=== PATIENT | male | born 1985 | race Caucasian/White ===

== ENCOUNTER 2021-10-03 02:51 | Emergency (ER) | payer OTHER, SELFPAY ==
[2021-10-03] VITALS (18 sets, daily range): BP systolic 137–172; BP diastolic 81–108; PULSE 106–131; RESP 22; TEMP 36.3; O2SAT 96–100; BMI 24.6
--- NOTE | 2021-10-03 03:16 | ED_ITS ---
HPI - Abdominal Pain <DO Pino Monte Last Filed: 10/04/21 01:37> General Chief Complaint: Abdominal Pain Stated Complaint: abdominal pain Time Seen by Provider: 10/03/21 03:01 History of Present Illness HPI narrative: 35-year-old male nonsmoker with history of prior episodes of pancreatitis presents with his in the chief complaint of severe epigastric and left upper quadrant pain worsening over the course of the day. He states that he has had pancreatitis in the past in some ways this feels similar. He states it is 8/10, sharp and terrible pain that is made worse by motion in by eating. Radiates to his back. He has had nausea and vomiting as well and a very limited appetite. He denies any fever or chills. He denies any recent alcohol use. He denies any prior surgeries on his abdomen. His last bowel movement was 2 days ago and he is passing gas without difficulty. He denies any urinary complaints. Patient has been taking his medications as directed and denies any dietary change. He takes Suboxone 2 mg and most recently took it last evening. Patient lives in [place] and is established with Dr. Donald Angeles (GI at [facility]) Related Data Allergies Allergy/AdvReac Type Severity Reaction Status Date / Time No Known Drug Allergies Allergy Verified 10/03/21 03:26 Review of Systems <DO Pino Monte Last Filed: 10/04/21 01:37> Review of Systems Narrative: GENERAL: Denies chills, fatigue, malaise, fever, sweats. HEENT: Denies sinus pain, ear pain, sore throat, difficulty swallowing, dizziness. RESPIRATORY: Denies dyspnea, cough, wheezing, hemoptysis, sputum. CARDIOVASCULAR: Denies chest pain, palpitations, orthopnea, edema, GASTROINTESTINAL: See HPI : Denies dysuria, frequency, incontinence, hematuria, urinary retention. MUSCULOSKELETAL: denies weakness, joint pain, or bony pain SKIN: Denies rash, skin lesions, or other NEUROLOGIC: Denies weakness, headache, numbness, change in speech, confusion, seizures, incoordination. PSYCHIATRIC: No concerning psychosocial issues. 12 point review of systems is negative except for those stated above Patient History <DO Pino Monte Last Filed: 10/04/21 01:37> Social History Smoking Status: Former smoker Exam <Armen Smith DO - Last Filed: 10/04/21 01:37> Narrative Exam Narrative: GENERAL: [35 year old patient appears stated age. Well-developed patient, in no obvious distress, clearly in pain, sitting forward on the cart, rubbing his upper abdomen HEAD: Atraumatic. Normocephalic. EYES: Pupils equal round and reactive. Extraocular motions intact. No scleral icterus. No injection or drainage. ENT: Nose without bleeding, purulent drainage. Throat without erythema, tonsi llar hypertrophy or exudate. Airway patent. NECK: Trachea midline. Non tender CARDIOVASCULAR: Regular rate and rhythm without murmurs, gallops, or rubs. RESPIRATORY: Clear to auscultation. Breath sounds equal bilaterally. No wheezes, rales, or rhonchi. GASTROINTESTINAL: Abdomen soft, tender in the epigastrium with voluntary guarding nondistended. Bowel sounds present in all quadrants EXTREMITIES: No edema or joint tenderness. BACK: Nontender without deformity or crepitance. No flank tenderness. NEURO: AOx3. SKIN: No rash or erythema of visible areas Initial Vital Signs Initial Vital Signs: Vital Signs Temperature 97.3 F L 10/03/21 02:55 Pulse Rate 131 H 10/03/21 02:55 Respiratory Rate 22 10/03/21 02:55 Blood Pressure 160/108 H 10/03/21 02:55 Pulse Oximetry 98 10/03/21 02:55 <Arlen Collins MD - Last Filed: 10/04/21 07:12> Initial Vital Signs Initial Vital Signs: Vital Signs Temperature 97.3 F L 10/03/21 02:55 Pulse Rate 131 H 10/03/21 02:55 Respiratory Rate 22 10/03/21 02:55 Blood Pressure 160/108 H 10/03/21 02:55 Pulse Oximetry 98 10/03/21 02:55 Course <Armen Smith DO - Last Filed: 10/04/21 01:37> Orders Ordered: Discontinued Medications Fentanyl (Fentanyl 100 Mcg/2 Ml Inj) 100 mcg IV NOW ONE Stop: 10/03/21 08:18 Last Admin: 10/03/21 08:30 Dose: 100 mcg Documented by: REBEKAH Fentanyl (Fentanyl 100 Mcg/2 Ml Inj) 100 mcg IV Q1H PRN PRN Reason: Pain, Severe (7-10) Last Admin: 10/03/21 12:35 Dose: 100 mcg Documented by: Admin: 10/03/21 11:35 Dose: 100 mcg Documented by: Admin: 10/03/21 10:24 Dose: 100 mcg Documented by: REBEKAH Fentanyl (Fentanyl 100 Mcg/2 Ml Inj) 100 mcg IV Q30MIN PRN PRN Reason: Pain, Severe (7-10) Last Admin: 10/03/21 15:09 Dose: 100 mcg Documented by: Admin: 10/03/21 14:16 Dose: 100 mcg Documented by: Admin: 10/03/21 13:28 Dose: 100 mcg Documented by: LATRELL Fentanyl (Fentanyl 100 Mcg/2 Ml Inj) 50 mcg IV NOW ONE Stop: 10/03/21 17:03 Last Admin: 10/03/21 17:25 Dose: 50 mcg Documented by: LATRELL Hydromorphone HCl (Hydromorphone 1 Mg Inj) 1 mg IV Q15MIN PRN PRN Reason: Pain, Severe (7-10) Last Admin: 10/03/21 03:47 Dose: 1 mg Documented by: Admin: 10/03/21 03:31 Dose: 1 mg Documented by: EDITH Sodium Chloride (Normal Saline 0.9%) 1,000 mls @ 1,000 mls/hr IV BOLUS ONE Stop: 10/03/21 04:16 Last Infusion: 10/03/21 05:19 Dose: 0 mls/hr Documented by: Admin: 10/03/21 03:30 Dose: 1,000 mls/hr Documented by: EDITH Sodium Chloride (Normal Saline 0.9%) 1,000 mls @ 1,000 mls/hr IV BOLUS ONE Stop: 10/03/21 06:37 Last Infusion: 10/03/21 07:32 Dose: 0 mls/hr Documented by: Admin: 10/03/21 05:43 Dose: 1,000 mls/hr Documented by: EDITH Piperacillin Sod/Tazobactam (Sod 4.5 gm/ Sodium Chloride) 100 mls @ 200 mls/hr IV NOW ONE Stop: 10/03/21 06:10 Last Infusion: 10/03/21 07:32 Dose: 0 mls/hr Documented by: EDOUARDDGRASS Admin: 10/03/21 06:38 Dose: 200 mls/hr Documented by: EDITH KETAMINE IN NS 100 mg/ Sodium (Chloride) 110 mls @ 6.6 mls/hr IV TITRATE JOSE; Protocol Last Titration: 10/03/21 10:09 Dose: 0 mg/min, 0 mls/hr Documented by: Titration: 10/03/21 08:45 Dose: 0.23 mg/min, 15 mls/hr Documented by: Titration: 10/03/21 08:30 Dose: 0.18 mg/min, 12 mls/hr Documented by: Titration: 10/03/21 07:42 Dose: 0.15 mg/min, 10 mls/hr Documented by: Admin: 10/03/21 07:04 Dose: 0.1 mg/min, 6.6 mls/hr Documented by: EDITH Piperacillin Sod/Tazobactam (Sod 3.375 gm/ Sodium Chloride) 100 mls @ 25 mls/hr IV Q8H JOSE Last Infusion: 10/03/21 18:30 Dose: 0 mls/hr Documented by: Admin: 10/03/21 14:24 Dose: 25 mls/hr Documented by: ATAYLOR Sodium Chloride (Normal Saline 0.9%) 1,000 mls @ 150 mls/hr IV CONT JOSE Last Infusion: 10/03/21 20:47 Dose: 0 mls/hr Documented by: Admin: 10/03/21 17:15 Dose: 150 mls/hr Documented by: Infusion: 10/03/21 17:13 Dose: 0 mls/hr Documented by: Infusion: 10/03/21 14:03 Dose: 150 mls/hr Documented by: Infusion: 10/03/21 13:03 Dose: 0 mls/hr Documented by: Admin: 10/03/21 09:25 Dose: 150 mls/hr Documented by: RSTONE Sodium Chloride (Normal Saline 0.9%) 500 mls @ 500 mls/hr IV BOLUS ONE Stop: 10/03/21 13:38 Last Infusion: 10/03/21 14:03 Dose: 0 mls/hr Documented by: Admin: 10/03/21 13:03 Dose: 500 mls/hr Documented by: CRYLOR Fentanyl 1,000 mcg/ Dextrose 250 mls @ 21.206 mls/hr IV TITRATE JOSE; Protocol Last Admin: 10/03/21 16:32 Dose: Not Given Documented by: ATAYLOR Fentanyl 1,000 mcg/ Dextrose 250 mls @ 21.206 mls/hr IV TITRATE JOSE; Protocol Last Titration: 10/03/21 20:48 Dose: 0 mcg/kg/hr, 0 mls/hr Documented by: Titration: 10/03/21 17:00 Dose: 2 mcg/kg/hr, 42.411 mls/hr Documented by: Admin: 10/03/21 15:50 Dose: 1 mcg/kg/hr, 21.206 mls/hr Documented by: LATRELL Ketorolac Tromethamine (Ketorolac 30 Mg/Ml Vial) 15 mg IV NOW ONE Stop: 10/03/21 12:56 Last Admin: 10/03/21 12:59 Dose: 15 mg Documented by: LATRELL Ondansetron HCl (Ondansetron 4 Mg/2 Ml Inj) 4 mg IV NOW ONE Stop: 10/03/21 03:23 Last Admin: 10/03/21 03:30 Dose: 4 mg Documented by: EDITH Ondansetron HCl (Ondansetron 4 Mg/2 Ml Inj) 4 mg IV NOW ONE Stop: 10/03/21 08:45 Last Admin: 10/03/21 08:46 Dose: 4 mg Documented by: REBEKAH Ondansetron HCl (Ondansetron 4 Mg/2 Ml Inj) 4 mg IV Q6HR PRN PRN Reason: Nausea And Vomiting Last Admin: 10/03/21 18:42 Dose: 4 mg Documented by: LATRELL Pantoprazole Sodium (Pantoprazole 40 Mg Vial) 40 mg IV NOW ONE Stop: 10/03/21 03:23 Last Admin: 10/03/21 03:30 Dose: 40 mg Documented by: EDITH Mcclellan Consultation #1: [id number] - call to [facility]. No beds 0610 - call to [facility]. No beds. No IR 0615 - call to [facility]. Boarding. Likely no beds for 24 hours Will take info and page GI/ IR. Request Face Sheet to [phone]. Will call back after 0700 0630 - call to . No beds. Boarding. Images pushed. Face sheet to [phone] 0650 - call to . Images pushed. Face sheet to [phone]. Left message. 0655 - call to Dr. Angeles [facility] ([phone]). Dr. Salazar will be calling Vital Signs Vital signs: Vital Signs - 8 hr 10/03/21 12:25 10/03/21 12:26 10/03/21 14:12 Pulse Rate 120 H 110 H Blood Pressure 163/96 H 160/90 H Pulse Oximetry 98 99 99 <Arlen Collins MD - Last Filed: 10/04/21 07:12> Orders Ordered: Discontinued Medications Fentanyl (Fentanyl 100 Mcg/2 Ml Inj) 100 mcg IV NOW ONE Stop: 10/03/21 08:18 Last Admin: 10/03/21 08:30 Dose: 100 mcg Documented by: RSTONE Fentanyl (Fentanyl 100 Mcg/2 Ml Inj) 100 mcg IV Q1H PRN PRN Reason: Pain, Severe (7-10) Last Admin: 10/03/21 12:35 Dose: 100 mcg Documented by: Admin: 10/03/21 11:35 Dose: 100 mcg Documented by: Admin: 10/03/21 10:24 Dose: 100 mcg Documented by: RSTONE Fentanyl (Fentanyl 100 Mcg/2 Ml Inj) 100 mcg IV Q30MIN PRN PRN Reason: Pain, Severe (7-10) Last Admin: 10/03/21 15:09 Dose: 100 mcg Documented by: Admin: 10/03/21 14:16 Dose: 100 mcg Documented by: Admin: 10/03/21 13:28 Dose: 100 mcg Documented by: ATAYLOR Fentanyl (Fentanyl 100 Mcg/2 Ml Inj) 50 mcg IV NOW ONE Stop: 10/03/21 17:03 Last Admin: 10/03/21 17:25 Dose: 50 mcg Documented by: ATAYLOR Hydromorphone HCl (Hydromorphone 1 Mg Inj) 1 mg IV Q15MIN PRN PRN Reason: Pain, Severe (7-10) Last Admin: 10/03/21 03:47 Dose: 1 mg Documented by: Admin: 10/03/21 03:31 Dose: 1 mg Documented by: EDITH Sodium Chloride (Normal Saline 0.9%) 1,000 mls @ 1,000 mls/hr IV BOLUS ONE Stop: 10/03/21 04:16 Last Infusion: 10/03/21 05:19 Dose: 0 mls/hr Documented by: Admin: 10/03/21 03:30 Dose: 1,000 mls/hr Documented by: EDITH Sodium Chloride (Normal Saline 0.9%) 1,000 mls @ 1,000 mls/hr IV BOLUS ONE Stop: 10/03/21 06:37 Last Infusion: 10/03/21 07:32 Dose: 0 mls/hr Documented by: Admin: 10/03/21 05:43 Dose: 1,000 mls/hr Documented by: EDITH Piperacillin Sod/Tazobactam (Sod 4.5 gm/ Sodium Chloride) 100 mls @ 200 mls/hr IV NOW ONE Stop: 10/03/21 06:10 Last Infusion: 10/03/21 07:32 Dose: 0 mls/hr Documented by: Admin: 10/03/21 06:38 Dose: 200 mls/hr Documented by: EDITH KETAMINE IN NS 100 mg/ Sodium (Chloride) 110 mls @ 6.6 mls/hr IV TITRATE JOSE; Protocol Last Titration: 10/03/21 10:09 Dose: 0 mg/min, 0 mls/hr Documented by: Titration: 10/03/21 08:45 Dose: 0.23 mg/min, 15 mls/hr Documented by: Titration: 10/03/21 08:30 Dose: 0.18 mg/min, 12 mls/hr Documented by: Titration: 10/03/21 07:42 Dose: 0.15 mg/min, 10 mls/hr Documented by: Admin: 10/03/21 07:04 Dose: 0.1 mg/min, 6.6 mls/hr Documented by: KWOYSKI Piperacillin Sod/Tazobactam (Sod 3.375 gm/ Sodium Chloride) 100 mls @ 25 mls/hr IV Q8H JOSE Last Infusion: 10/03/21 18:30 Dose: 0 mls/hr Documented by: Admin: 10/03/21 14:24 Dose: 25 mls/hr Documented by: ATAYLOR Sodium Chloride (Normal Saline 0.9%) 1,000 mls @ 150 mls/hr IV CONT JOSE Last Infusion: 10/03/21 20:47 Dose: 0 mls/hr Documented by: Admin: 10/03/21 17:15 Dose: 150 mls/hr Documented by: Infusion: 10/03/21 17:13 Dose: 0 mls/hr Documented by: Infusion: 10/03/21 14:03 Dose: 150 mls/hr Documented by: Infusion: 10/03/21 13:03 Dose: 0 mls/hr Documented by: Admin: 10/03/21 09:25 Dose: 150 mls/hr Documented by: REBEKAH Sodium Chloride (Normal Saline 0.9%) 500 mls @ 500 mls/hr IV BOLUS ONE Stop: 10/03/21 13:38 Last Infusion: 10/03/21 14:03 Dose: 0 mls/hr Documented by: Admin: 10/03/21 13:03 Dose: 500 mls/hr Documented by: ATAYLOR Fentanyl 1,000 mcg/ Dextrose 250 mls @ 21.206 mls/hr IV TITRATE JOSE; Protocol Last Admin: 10/03/21 16:32 Dose: Not Given Documented by: ATAYLOR Fentanyl 1,000 mcg/ Dextrose 250 mls @ 21.206 mls/hr IV TITRATE JOSE; Protocol Last Titration: 10/03/21 20:48 Dose: 0 mcg/kg/hr, 0 mls/hr Documented by: Titration: 10/03/21 17:00 Dose: 2 mcg/kg/hr, 42.411 mls/hr Documented by: Admin: 10/03/21 15:50 Dose: 1 mcg/kg/hr, 21.206 mls/hr Documented by: ATAYLOR Ketorolac Tromethamine (Ketorolac 30 Mg/Ml Vial) 15 mg IV NOW ONE Stop: 10/03/21 12:56 Last Admin: 10/03/21 12:59 Dose: 15 mg Documented by: LATRELL Ondansetron HCl (Ondansetron 4 Mg/2 Ml Inj) 4 mg IV NOW ONE Stop: 10/03/21 03:23 Last Admin: 10/03/21 03:30 Dose: 4 mg Documented by: EDITH Ondansetron HCl (Ondansetron 4 Mg/2 Ml Inj) 4 mg IV NOW ONE Stop: 10/03/21 08:45 Last Admin: 10/03/21 08:46 Dose: 4 mg Documented by: REBEKAH Ondansetron HCl (Ondansetron 4 Mg/2 Ml Inj) 4 mg IV Q6HR PRN PRN Reason: Nausea And Vomiting Last Admin: 10/03/21 18:42 Dose: 4 mg Documented by: LATRELL Pantoprazole Sodium (Pantoprazole 40 Mg Vial) 40 mg IV NOW ONE Stop: 10/03/21 03:23 Last Admin: 10/03/21 03:30 Dose: 40 mg Documented by: EDITH Consultations Consultation #1: [phone] - call to [facility]. No beds 0610 - call to [facility]. No beds. No IR 0615 - call to [facility]. Boarding. Likely no beds for 24 hours Will take info and page GI/ IR. Request Face Sheet to [phone]. Will call back after 0700 0630 - call to . No beds. Boarding. Images pushed. Face sheet to [phone] 0650 - call to . Images pushed. Face sheet to [phone]. Left message. [phone] - call to Dr. [facility] ([phone]). Dr. Salazar will be calling Dr Collins 7:50 Dr Bryce Christian Hospitalist at . Report given. Accepted pending bed availability (at least 2 others ahead in queue) 7:54 DR Morton GI/ERCP doc with transfer center. Agrees that admit [facility] at [facility]. Will call hospitalist there. Pending bed availability. 8:37 DR Patel, accepting hositalist with [facility]. Accepted with anticipated transfer earliest 10/04 as ERCP would not be done until that time. 6pm Possible bed at [facility]. Reviewed with Dr Hines, gastroenterology. 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 At this point he said that [facility] has a capacity as well as the [facility]. At this point will continue with current plan of transfer to the [facility] tomorrow, as accepted. Will contact transfer center later this evening to make sure bed will be available and arrange for transport time Patient's pain continues to be an issue. At this point he is now on a fentanyl drip at 2 mics/kilos/ hour. Antibiotics continue as does IV fluid. He remains NPO. He is aware of reason for continued delay. 9pm Accepted and transferred to [facility] Vital Signs Vital signs: Vital Signs - 8 hr 10/03/21 12:25 10/03/21 12:26 10/03/21 14:12 Pulse Rate 120 H 110 H Blood Pressure 163/96 H 160/90 H Pulse Oximetry 98 99 99 MDM - Abdominal Pain <Armen Smith DO - Last Filed: 10/04/21 01:37> Lab Data Result diagrams: 10/03/21 07:55 10/03/21 03:15 Labs: Lab Results 10/03/21 10/03/21 10/03/21 Range/Units 03:15 03:15 03:15 WBC 22.5 H (4.5-11.0) X10^3/uL RBC 5.59 (4.5-5.9) X10^6/uL Hgb 16.9 (13.5-17.5) g/dL Hct 49.5 (41-53) % MCV 88.5 (80-100) fL MCH 30.2 (26-34) PG MCHC 34.1 (30-36) % RDW 19.6 H (11.6-14.8) % Plt Count 209 (150-400) X10^3/uL Neut % (Auto) 87.2 H (50-75) % Lymph % (Auto) 3.0 L (25-40) % [place] % (Auto) 9.7 (3-14) % Eos % (Auto) 0.0 L (2-4) % Baso % (Auto) 0.1 (0-2) % Neut # (Auto) 48385 H (6235-1224) /uL Lymph # (Auto) 700 L (0957-3051) /uL [place] # (Auto) 2200 H (0-900) /uL Eos # (Auto) 0 (0-450) /uL Baso # (Auto) 0 (0-100) /uL Sodium 133 L (137-145) mmol/L Potassium 3.8 (3.4-5.1) mmol/L Chloride 89 L (98-107) mmol/L Carbon Dioxide 33 H (22-32) mmol/L BUN 24 H (9-20) mg/dL Creatinine 1.23 (0.66-1.25) mg/dL Estimated GFR > 60.0 (>60) mL/min BUN/Creatinine Ratio 19.5 (6-22) Glucose 141 H (70-100) mg/dL Lactate 2.0 (0.7-2.1) mmol/L Calcium 9.7 (8.4-10.2) mg/dL Total Bilirubin 2.5 H (0.2-1.3) mg/dL AST 25 (17-59) IU/L ALT 12 (<50) IU/L Alkaline Phosphatase 39 (38-126) U/L Total Protein 7.5 (6.3-8.2) g/dL Albumin 4.3 (3.5-5.0) g/dL Globulin 3.2 (1.7-4.1) g/dL Albumin/Globulin Ratio 1.3 (1.0-2.8) Lipase 600 H (23-300) U/L Urine RBC (0-5/HPF) Urine WBC (0-5/HPF) Urine Bacteria (None) Hyaline Casts (None) Granular Casts (None) Ur Culture Indicated? SARS-CoV-2 (PCR) (Negative) 10/03/21 10/03/21 10/03/21 Range/Units 05:25 06:45 07:55 WBC (4.5-11.0) X10^3/uL RBC (4.5-5.9) X10^6/uL Hgb 15.4 (13.5-17.5) g/dL Hct 44.8 (41-53) % MCV (80-100) fL MCH (26-34) PG MCHC (30-36) % RDW (11.6-14.8) % Plt Count (150-400) X10^3/uL Neut % (Auto) (50-75) % Lymph % (Auto) (25-40) % [place] % (Auto) (3-14) % Eos % (Auto) (2-4) % Baso % (Auto) (0-2) % Neut # (Auto) (7151-1660) /uL Lymph # (Auto) (3428-4641) /uL [place] # (Auto) (0-900) /uL Eos # (Auto) (0-450) /uL Baso # (Auto) (0-100) /uL Sodium (137-145) mmol/L Potassium (3.4-5.1) mmol/L Chloride (98-107) mmol/L Carbon Dioxide (22-32) mmol/L BUN (9-20) mg/dL Creatinine (0.66-1.25) mg/dL Estimated GFR (>60) mL/min BUN/Creatinine Ratio (6-22) Glucose (70-100) mg/dL Lactate (0.7-2.1) mmol/L Calcium (8.4-10.2) mg/dL Total Bilirubin (0.2-1.3) mg/dL AST (17-59) IU/L ALT (<50) IU/L Alkaline Phosphatase (38-126) U/L Total Protein (6.3-8.2) g/dL Albumin (3.5-5.0) g/dL Globulin (1.7-4.1) g/dL Albumin/Globulin Ratio (1.0-2.8) Lipase (23-300) U/L Urine RBC 0-1/hpf (0-5/HPF) Urine WBC 1-5/hpf (0-5/HPF) Urine Bacteria None seen (None) Hyaline Casts 0-1/lpf (None) Granular Casts 0-1/lpf (None) Ur Culture Indicated? Culture not indicate SARS-CoV-2 (PCR) Negative (Negative) Point of care testing: Urine Dip Bedside Urine Glucose Negative Bedside Urine Bilirubin - Negative Bedside Urine Ketone +/- 5 Urine Specific [place] 1.015 Bedside Urine Occult Blood ++ Bedside Urine pH 5.5 Bedside Urine Protein + 30 Bedside Urine Urobilinogen - Negative Bedside Urine Nitrite - Negative Bedside Urine Leukocytes - Negative Esterase Imaging Data CT scan - abdomen/pelvis: Radiologist's Impression: Large peripancreatic fluid collection with internal debris. Hemorrhage into pseudocyst as a possibility. No active hemorrhage is identified on this study. Extensive multifocal fluid collections present throughout the fat of the left upper quadrant, possibly ill-defined pseudocyst. Neoplasm with local spread is another possibility. Small volume free fluid in lower pelvis, left pleural effusion, and moderately enlarged mesenteric root and upper para-aortic lymph nodes are all findings potentially related to this <Arlen Collins MD - Last Filed: 10/04/21 07:12> Lab Data Labs: Lab Results 10/03/21 10/03/21 10/03/21 Range/Units 03:15 03:15 03:15 WBC 22.5 H (4.5-11.0) X10^3/uL RBC 5.59 (4.5-5.9) X10^6/uL Hgb 16.9 (13.5-17.5) g/dL Hct 49.5 (41-53) % MCV 88.5 (80-100) fL MCH 30.2 (26-34) PG MCHC 34.1 (30-36) % RDW 19.6 H (11.6-14.8) % Plt Count 209 (150-400) X10^3/uL Neut % (Auto) 87.2 H (50-75) % Lymph % (Auto) 3.0 L (25-40) % [place] % (Auto) 9.7 (3-14) % Eos % (Auto) 0.0 L (2-4) % Baso % (Auto) 0.1 (0-2) % Neut # (Auto) 12102 H (0756-1193) /uL Lymph # (Auto) 700 L (7132-9035) /uL [place] # (Auto) 2200 H (0-900) /uL Eos # (Auto) 0 (0-450) /uL Baso # (Auto) 0 (0-100) /uL Sodium 133 L (137-145) mmol/L Potassium 3.8 (3.4-5.1) mmol/L Chloride 89 L (98-107) mmol/L Carbon Dioxide 33 H (22-32) mmol/L BUN 24 H (9-20) mg/dL Creatinine 1.23 (0.66-1.25) mg/dL Estimated GFR > 60.0 (>60) mL/min BUN/Creatinine Ratio 19.5 (6-22) Glucose 141 H (70-100) mg/dL Lactate 2.0 (0.7-2.1) mmol/L Calcium 9.7 (8.4-10.2) mg/dL Total Bilirubin 2.5 H (0.2-1.3) mg/dL AST 25 (17-59) IU/L ALT 12 (<50) IU/L Alkaline Phosphatase 39 (38-126) U/L Total Protein 7.5 (6.3-8.2) g/dL Albumin 4.3 (3.5-5.0) g/dL Globulin 3.2 (1.7-4.1) g/dL Albumin/Globulin Ratio 1.3 (1.0-2.8) Lipase 600 H (23-300) U/L Urine RBC (0-5/HPF) Urine WBC (0-5/HPF) Urine Bacteria (None) Hyaline Casts (None) Granular Casts (None) Ur Culture Indicated? SARS-CoV-2 (PCR) (Negative) 10/03/21 10/03/21 10/03/21 Range/Units 05:25 06:45 07:55 WBC (4.5-11.0) X10^3/uL RBC (4.5-5.9) X10^6/uL Hgb 15.4 (13.5-17.5) g/dL Hct 44.8 (41-53) % MCV (80-100) fL MCH (26-34) PG MCHC (30-36) % RDW (11.6-14.8) % Plt Count (150-400) X10^3/uL Neut % (Auto) (50-75) % Lymph % (Auto) (25-40) % [place] % (Auto) (3-14) % Eos % (Auto) (2-4) % Baso % (Auto) (0-2) % Neut # (Auto) (3823-3995) /uL Lymph # (Auto) (0969-7386) /uL [place] # (Auto) (0-900) /uL Eos # (Auto) (0-450) /uL Baso # (Auto) (0-100) /uL Sodium (137-145) mmol/L Potassium (3.4-5.1) mmol/L Chloride (98-107) mmol/L Carbon Dioxide (22-32) mmol/L BUN (9-20) mg/dL Creatinine (0.66-1.25) mg/dL Estimated GFR (>60) mL/min BUN/Creatinine Ratio (6-22) Glucose (70-100) mg/dL Lactate (0.7-2.1) mmol/L Calcium (8.4-10.2) mg/dL Total Bilirubin (0.2-1.3) mg/dL AST (17-59) IU/L ALT (<50) IU/L Alkaline Phosphatase (38-126) U/L Total Protein (6.3-8.2) g/dL Albumin (3.5-5.0) g/dL Globulin (1.7-4.1) g/dL Albumin/Globulin Ratio (1.0-2.8) Lipase (23-300) U/L Urine RBC 0-1/hpf (0-5/HPF) Urine WBC 1-5/hpf (0-5/HPF) Urine Bacteria None seen (None) Hyaline Casts 0-1/lpf (None) Granular Casts 0-1/lpf (None) Ur Culture Indicated? Culture not indicate SARS-CoV-2 (PCR) Negative (Negative) Point of care testing: Urine Dip Bedside Urine Glucose Negative Bedside Urine Bilirubin - Negative Bedside Urine Ketone +/- 5 Urine Specific [place] 1.015 Bedside Urine Occult Blood ++ Bedside Urine pH 5.5 Bedside Urine Protein + 30 Bedside Urine Urobilinogen - Negative Bedside Urine Nitrite - Negative Bedside Urine Leukocytes - Negative Esterase Imaging Data CT scan - abdomen/pelvis: Radiologist's Impression: Large peripancreatic fluid collection with internal debris. Hemorrhage into pseudocyst as a possibility. No active hemorrhage is identified on this study. Extensive multifocal fluid collections present throughout the fat of the left upper quadrant, possibly ill-defined pseudocyst. Neoplasm with local spread is another possibility. Small volume free fluid in lower pelvis, left pleural effusion, and moderately enlarged mesenteric root and upper para-aortic lymph nodes are all findings potentially related to this 10am Radiology over read: concern for gastric fistula associated with large pancreatic cyst. No free air seen. Dr Cortez [facility] Narrative Medical decision making narrative: Care is excepted at change of shift from Dr. Smith. 35-year-old gentleman with a history of pancreatitis, alcohol use currently in remission and on 2 mg of Suboxone. Presents with severe abdominal pain and noted to have a 12 x 12 x 14 cm pancreatic pseudocyst causing severe pain. Mildly elevated bilirubin at 2.5, minimally elevated lipase at 600. H&H and platelets are within normal limits. Creatinine is 1.2. White count is elevated at 22.5 1000. Initial resuscitation is included fluids, Zosyn, ketamine drip for pain control after Dilaudid was not helpful. The ketamine drip has helped somewhat with pain however he remains hypertensive. Not quite as tachycardic as he had been previously. Patient is re-evaluated. Pain is increasing at this point even with ketamine drip. Will try fentanyl to override the Suboxone and increase the ketamine drip slightly. Have spoken with multiple providers and currently awaiting bed availability at multiple hospitals to see where he might be transferred to. The weight as well as anticipated plan for the day is reviewed with both he and his questions are answered. Currently H&H is pending. His next dose of antibiotics will be scheduled appropriately. Critical Care Time <Armen Smith, DO - Last Filed: 10/04/21 01:37> Critical Care Time Critical Care Time: Yes Total Critical Care Time: 75 Attestation: The high probability of a clinically significant, sudden or life threatening deterioration of the [CV/GI] system(s) required my full and direct attention, intervention and personal management. The aggregate critical care time was [75] minutes. This time is in addition to time spent performing reported procedures but includes the following: [x] Data Review and interpretation [x] Patient assessment and monitoring of vital signs [x] Documentation [x] Medication orders and management Discharge Plan Departure [facility] Clinical Impression: Infected pseudocyst of pancreas, Intractable abdominal pain
--- NOTE | 2021-10-03 03:24 | DI.RAD.S_ITS ---
PROCEDURE: XR ABDOMEN MIN 2V INDICATIONS: severe LUQ pain, N/V TECHNIQUE: 3 views of the abdomen were acquired. COMPARISON: [facility], CT, CT ABDOMEN PELVIS W CON, 10/03/2021, 4:42. FINDINGS: Surgical changes and devices: None. Bowel: No pneumoperitoneum. The bowel gas pattern is within normal limits. Soft tissues: No suspicious abdominal calcifications. There is a masslike lesion in the upper abdomen with displacement of the stomach and adjacent bowel loops. Bones: No suspicious bony abnormalities. IMPRESSION: 1. Bowel gas pattern within normal limits. 2. Masslike lesion in the mid upper abdomen with displacement of the adjacent stomach and bowel loops. Recommend correlation with subsequent CT. Dictated by: Calvin Cortze M.D. on 10/03/2021 at 10:16 Approved by: Calvin Cortez M.D. on 10/03/2021 at 10:17
[2021-10-03] MEDS: SODIUM CHLORIDE 0.9% 1,000 ML 1000 ML IV ×2 (03:30→05:43)
[2021-10-03] MEDS: ONDANSETRON 4 MG/2 ML INJ IV ×3 (03:30→18:42)
[2021-10-03] MEDS: PANTOPRAZOLE 40 MG VIAL IV (03:30)
[2021-10-03] MEDS: HYDROMORPHONE 1 MG INJ IV ×2 (03:31→03:47)
[2021-10-03 03:32] LABS: Add Manual Diff / Slide Review NO; Basophils Absolute Auto 0 /uL (0-100); Basophils Percent Auto 0.1 % (0-2); Eosinophils Absolute Auto 0 /uL (0-450); Hematocrit 49.5 % (41-53); Hemoglobin 16.9 g/dL (13.5-17.5); Lymphocytes Absolute Auto 700 /uL (1100-4500); Mean Corpuscular HGB Conc 34.1 % (30-36); Mean Corpuscular Hemoglobin 30.2 PG (26-34); Mean Corpuscular Volume 88.5 fL (80-100); Monocytes Absolute Auto 2200 /uL (0-900); Monocytes Percent Auto 9.7 % (3-14); Neutrophils Absolute Auto 19600 /uL (1500-7000); Neutrophils Percent Auto 87.2 % (50-75); Platelet Count 209 X10^3/uL (150-400); Red Blood Cell Count 5.59 X10^6/uL (4.5-5.9); Red Cell Distribution Width 19.6 % (11.6-14.8); White Blood Cell Count 22.5 X10^3/uL (4.5-11.0)
[2021-10-03 03:38] LABS: Alanine Aminotransferase 12 IU/L (<50); Albumin 4.3 g/dL (3.5-5.0); Albumin Globulin Ratio 1.3 (1.0-2.8); Alkaline Phosphatase 39 U/L (38-126); Aspartate Aminotransferase 25 IU/L (17-59); BUN Creatinine Ratio 19.5 (6-22); Bilirubin Total 2.5 mg/dL (0.2-1.3); Blood Urea Nitrogen 24 mg/dL (9-20); Calcium 9.7 mg/dL (8.4-10.2); Carbon Dioxide 33 mmol/L (22-32); Chloride 89 mmol/L (98-107); Estimated Glomerular Filt Rate > 60.0 mL/min (>60); Globulin 3.2 g/dL (1.7-4.1); Glucose 141 mg/dL (70-100); HEMOLYSIS < 15 (0-50); Lipase 600 U/L (23-300); Potassium 3.8 mmol/L (3.4-5.1); Sodium 133 mmol/L (137-145); Total Protein 7.5 g/dL (6.3-8.2)
[2021-10-03] MEDS: KETAMINE 50 MG/5 ML *SYRINGE 8.4822 MG IV ×3 (04:14→06:50)
--- NOTE | 2021-10-03 04:23 | DI.CT.S_ITS ---
PROCEDURE: CT ABDOMEN PELVIS W CON INDICATIONS: severe abdominal pain, N/V TECHNIQUE: After the administration of IV contrast, axial sections were acquired from the lung bases to the pubic symphysis. Coronal and sagittal reformats were performed. For radiation dose reduction, the following was used: automated exposure control, adjustment of mA and/or kV according to patient size. COMPARISON: None. FINDINGS: Image quality: Excellent. Lung bases: There is a small to moderate left pleural effusion with associated compressive atelectasis in the left lower lobe. There is also mild atelectasis in the left lingula. Heart: No significant findings. ABDOMEN: Liver: There is mild focal fatty infiltration in the anterior left hepatic lobe. Gallbladder: Unremarkable. Biliary ducts: Unremarkable. Pancreas: There is a large collection involving the majority of the pancreatic body and tail. This measures approximately 14.4 x 12.2 x 12.0 cm. There are areas of eccentric wall thickening within the collection as well as solid nodular internal components. The collection demonstrates extensive mass effect with displacement of adjacent organs including the stomach, bowel loops, and vessels. There is flattening of the splenic artery and vein which appear grossly patent. Spleen: Spleen is normal in size and demonstrates homogeneous enhancement. Adrenal Glands: Unremarkable. Kidneys and Ureters: Unremarkable. Stomach and Bowel: There is flattening of the stomach secondary to extrinsic mass effect by the large collection described above. Mild wall thickening is demonstrated along the stomach likely reflecting reactive changes. Small bowel loops are normal in caliber and wall thickness. Colon is normal in caliber. There is prominent ext segmental colonic wall thickening centered at the splenic flexure as well as involving the descending colon with pericolonic fat stranding. Findings likely reflect reactive changes secondary to the extensive information in the peritoneum. Peritoneum: There is peripancreatic fluid and fat stranding as well as extensive fat stranding within the mesentery and omentum in the left upper quadrant where there are also multiple loculated thin walled fluid collections. The largest fluid collection in the left upper quadrant measures up to approximately 8.1 x 4.8 cm dimension on series 2, image 44. There is associated prominent wall thickening and fluid tracking along the splenic flexure of the colon likely reflecting reactive changes. There is a small amount of free fluid tracking inferiorly along the left anterior pararenal space and left paracolic gutter into the pelvis. No intraperitoneal free air. Ventral Wall: No hernia. Abdominal Nodes: Multiple prominent mesenteric and retroperitoneal lymph nodes are demonstrated in the upper abdomen measuring up to approximately 1 cm in short axis. Findings are nonspecific but likely reactive. Vessels: Aorta and inferior vena cava are normal in size. PELVIS: Pelvic Organs: Unremarkable. Bladder: Unremarkable. Pelvic Nodes: No enlarged lymph nodes. Miscellaneous: No inguinal hernias are seen. Bones: Unremarkable. IMPRESSION: 1. Large loculated fluid collection involving the pancreatic body and tail with internal eccentric wall thickening and solid nodular components. The findings are suggestive of an acute necrotic collection in the setting of acute necrotizing pancreatitis given the presence of peripancreatic fat stranding. There is mass effect on adjacent structures including the stomach. Given the size of the collection, a gastric fistula cannot be excluded. The imaging differential for the collection includes a cystic neoplasm. 2. Free fluid, fat stranding, and multiple loculated fluid collections demonstrated within the left upper quadrant in the mesentery and omentum. The findings are likely related to acute pancreatitis with developing acute peripancreatic collections. As noted above, fistulous communication with the stomach with leakage of gastric contents cannot be excluded. The imaging differential includes peritoneal carcinomatosis. Correlation is recommended clinically as well as follow-up imaging to demonstrate resolution. 3. Marked segmental bowel wall thickening and pericolonic fat stranding involving the splenic flexure and descending colon. The findings likely represent a reactive colitis secondary to adjacent inflammatory changes. 4. Multiple mildly enlarged mesenteric and retroperitoneal lymph nodes in the upper abdomen are nonspecific but likely reactive. 5. Small to moderate left pleural effusion with left basilar compressive atelectasis. Concordant with preliminary interpretation. Dictated by: Calvin Cortez M.D. on 10/03/2021 at 8:26 Approved by: Calvin Cortez M.D. on 10/03/2021 at 8:43
[2021-10-03 06:06] LABS: Granular Casts Urine 0-1/LPF; Hyaline Casts Urine 0-1/LPF; RBC Urine 0-1/HPF (0-5/HPF); WBC Urine 1-5/HPF (0-5/HPF)
[2021-10-03 06:07] LABS: Bacteria Urine None Seen
[2021-10-03] MEDS: PIPERACILLIN/TAZO 4.5 GM in SODIUM CHLORIDE 0.9% 100 ML 200 ML IV (06:38)
[2021-10-03] MEDS: SODIUM CHLORIDE 0.9% IV (07:04)
[2021-10-03] MEDS: KETAMINE IV (07:04)
[2021-10-03] MEDS: NS IV (07:04)
[2021-10-03 07:14] LABS: COVID19 -Nasal RAPID Negative (Negative)
--- NOTE | 2021-10-03 07:27 | PC.NURSE ---
Pt's pain has been difficult to control. Pt takes Suboxone, last dose yesterday around noon. No response to 2mg dilaudid IV. Ketamine 8.4822mg given IV a total of 3 times per order from Dr Smith before starting IV drip Ketamine. Pt reports good pain relief with Ketamine.
[2021-10-03 08:02] LABS: Hematocrit 44.8 % (41-53); Hemoglobin 15.4 g/dL (13.5-17.5)
[2021-10-03] MEDS: fentaNYL 100 MCG/2 ML INJ IV ×7 (08:30→15:09)
[2021-10-03] MEDS: SODIUM CHLORIDE 0.9% 1,000 ML 150 ML IV ×2 (09:25→17:15)
--- NOTE | 2021-10-03 12:42 | PC.NURSE ---
Pt reports pain will get down to a 6/10 after pain medication administration but only for a short time then spikes back up. Pt sitting in room, in tripod position.
[2021-10-03] MEDS: KETOROLAC 30 MG/ML VIAL 15 MG IV (12:59)
[2021-10-03] MEDS: SODIUM CHLORIDE 0.9% 500 ML IV (13:03)
[2021-10-03] MEDS: PIPERACILLIN/TAZO 3.375 GM in SODIUM CHLORIDE 0.9% 100 ML 25 ML IV (14:24)
[2021-10-03] MEDS: fentaNYL 1,000 MCG in DEXTROSE 5% IN WATER 230 ML 21.206 ML IV (15:50)
--- NOTE | 2021-10-03 15:50 | PC.NURSE ---
Fentanyl drip double verified with Kathryn RN
--- NOTE | 2021-10-03 16:50 | PC.NURSE ---
Pt reports he had a short period of comfort but pain has returned 08/08, notified Dr Collins and verbal order received for 50mcg fentanyl one time dose and to increase fentanyl drip from 1mcg/kg/hr to 2mcg/kg/hr protocol. Double verification with Kathryn [facility].
[2021-10-03] MEDS: fentaNYL 100 MCG/2 ML INJ 50 MCG IV (17:25)
== END 2021-10-03 20:55 | disposition short-term general hospital (02) ==
PROVIDERS: Emergency Provider Emergency Medicine
DX: K86.3 Pseudocyst of pancreas (principal); I10 Essential (primary) hypertension; Z20.822 Contact with and (suspected) exposure to COVID-19; Z87.891 Personal history of nicotine dependence
CPT/HCPCS: 36415; 74019; 74177; 80053; 81003; 81015; 83605; 83690; 85014; 85018; 85025; 87040; 87086; 87635; 96361; 96365; 96366; 96367; 96368; 96375; 96376; 99285; 99291; 99292; C9803; C9113; J1170; J1885; J2405; J2543; J3010; Q9967